=== PATIENT | male | born 1980 | race Caucasian/White ===

== ENCOUNTER 2024-07-31 15:31 | Emergency (ER) | payer OTHER ==
[~2024-07-31] VITALS: Ht 172.7 cm; Wt 91.9 kg
[2024-07-31] MEDS: fentaNYL 100 MCG/2 ML INJECTION IV PRN (16:05)
[2024-07-31] MEDS: ONDANSETRON 4MG 2ML VIAL IV ONE (16:05)
[2024-07-31 18:22] VITALS: BP 120/75; TEMP 97.9; O2SAT 98
== END 2024-07-31 18:25 | disposition home or self-care (01) ==
LOC: EDBD 15:31 → M ED 15:31
DX: S93.601A Unspecified sprain of right foot, initial encounter (principal); S80.02XA Contusion of left knee, initial encounter; Y92.019 Unspecified place in single-family (private) house as the place of occurrence of the external cause; Y93.9 Activity, unspecified; Y99.9 Unspecified external cause status; V86.65XA Passenger of 3- or 4- wheeled all-terrain vehicle (ATV) injured in nontraffic accident, initial encounter; I10 Essential (primary) hypertension; K21.9 Gastro-esophageal reflux disease without esophagitis; F10.10 Alcohol abuse, uncomplicated
CPT/HCPCS: 73564; 73590; 73610; 73630; 96374; 99284; J2405; J3010